=== PATIENT | male | born 1955 | race Caucasian/White ===

== ENCOUNTER → 2019-01-07 | Day surgery (SDC) | payer MEDICARE ==
[~2019-01-07] MED LIST: Acetaminophen TAB* 325 MG PO PRN; Buffered Lidocaine 1% SYRIN* 1 ML/SYRINGE INTRADERM ONE; Dexamethasone IV* 4 MG/ML 1 ML (4 MG) ONE; DiMENhydriNATE IV* 50 MG/ML VIAL IV PUSH PRN; Famotidine IV* 10 MG/ML 2 ML (20 mg) ONE; KETAMINE HCL* 50 MG/ML 10 ML VIAL ONE; Lactated Ringers 1000 ML Bag* 1,000 ML IV SCH; Levalbuterol 0.63MG/3ML NEB* UNIT OF USE INH PRN; Midazolam* 1 MG/ML 2 ML VIAL (2 MG) ONE; Naloxone* 0.4 MG/ML 1 ML VIAL IV PRN; Ondansetron INJ* 2 MG/ML VIAL IV PRN; Propofol* 10 MG/ML 20 ML BTL ONE; diPHENhydraMINE IV* 50 MG/ML 1 ml VIAL (BENADRYL) ONE; fentaNYL* 50 MCG/ML 2 ML VIAL (100 MCG VIAL) ONE
[2019-01-07 10:26] VITALS: BP 151/82
--- NOTE | 2019-01-07 12:40 | PRO ---
DATE OF PROCEDURE: 01/07/19 - ENDO ATTENDING SURGEON: Ronen Whitmore MD PRE-OP DIAGNOSIS: Positive Cologuard test, incomplete colonoscopy previously. POST-OP DIAGNOSIS: Positive Cologuard test, incomplete colonoscopy previously. OPERATIVE PROCEDURE: Incomplete colonoscopy to proximal transverse colon. INDICATIONS FOR PROCEDURE: Prior incomplete colonoscopy and difficulty with sedation, here for MAC anesthesia and procedure to evaluate proximal colon. Risks of bleeding and perforation discussed. DESCRIPTION OF PROCEDURE: In the operating room under MAC sedation, digital rectal examination revealed no masses. The videocolonoscope was inserted into the rectum and advanced under direct visualization to what appeared to be proximal transverse colon. Because of apparent redundancy of the colon, I was not able to get any further and evaluate completely the cecum and ascending colon. The scope was retracted along the length of the visualized colon. No obvious mucosal abnormalities were noted along the way. He tolerated the procedure well. He was taken to Recovery in stable condition. CT scan/CT colonography versus barium enema was discussed with the radiologist which will be performed today to evaluate the proximal colon. [id number]/[facility] #: [id number] MTDD
--- NOTE | 2019-03-15 16:17 | HP ---
HISTORY AND PHYSICAL: DATE OF ADMISSION: 01/07/19. CHIEF COMPLAINT: Colon polyps, redundant colon. HISTORY OF PRESENT ILLNESS: Recent colonoscopy incomplete due to redundancy of colon, polyps were removed, requiring repeat colonoscopy under anesthesia. PAST MEDICAL HISTORY: No history of cardiac, liver, kidney, or lung disease. PAST SURGICAL HISTORY: Colonoscopy. MEDICATIONS: 1. Amlodipine. 2. Atorvastatin. 3. Atenolol. 4. Aspirin. 5. Nexium. ALLERGIES: No known drug allergies. FAMILY HISTORY: Denies history of colorectal or breast cancer. SOCIAL HISTORY: No tobacco or alcohol use. REVIEW OF SYSTEMS: HEENT: No changes in vision, hearing, or swallowing. No weight loss. No sore throat. Cardiac: No chest pain. Pulmonary: No cough. GI: No blood per rectum. : No hematuria. Skin: Denies rash. Neuro: No headache or dizziness. Musculoskeletal: No extremity weakness. Psych: No anxiety or depression. PHYSICAL EXAMINATION GENERAL: Pleasant gentleman, in no acute distress. HEENT: The sclerae are anicteric. Oral mucosa is pink and moist. NECK: Supple. No JVD. LUNGS: Clear. HEART: Regular. ABDOMEN: Soft, nondistended. EXTREMITIES: No clubbing, cyanosis, or edema. BACK: No vertebral or CVA tenderness. NEURO: Grossly intact. SKIN: No rash, petechiae, or jaundice. IMPRESSION: History of polyps and redundant colon, here for a colonoscopy. [id number] #: [id number] MTDD
== END | disposition home or self-care (01) ==
LOC: ENDO 06:44
PROVIDERS: ATTEND Surgery
DX: K62.5 Hemorrhage of anus and rectum (principal); K63.89 Other specified diseases of intestine; K21.9 Gastro-esophageal reflux disease without esophagitis; I10 Essential (primary) hypertension; R19.5 Other fecal abnormalities; Z86.010 Personal history of colon polyps; Z79.82 Long term (current) use of aspirin; Z87.891 Personal history of nicotine dependence; Z79.899 Other long term (current) drug therapy; Z96.652 Presence of left artificial knee joint
CPT/HCPCS: 74018; 74261; J1100; J1200; J2250; J2704; J3010